=== PATIENT | female | born 1950 | race Caucasian/White ===

== ENCOUNTER 2018-06-22 21:46 | Emergency (ER) | payer MEDICARE ==
[~2018-06-22] VITALS: Ht 165.1 cm; Wt 57.0 kg
[2018-06-22] MEDS ORDERED: SODIUM CHLORIDE 0.9% 1,000 ML IV ONE (22:04)
[2018-06-22] MEDS ORDERED: KETOROLAC 30MG/ML VIAL IV STA (22:04)
[2018-06-22] MEDS ORDERED: ONDANSETRON HCL 4MG/2ML VIAL IV STA (22:04)
[2018-06-22] MEDS ORDERED: MORPHINE SULFATE 4 MG/ML CPJ (NOT FOR IM USE) IV STA (22:04)
[2018-06-22 22:59] LABS: BASOPHILS % 0.7 % (0.0-2.0); EOSINOPHILS % 1.1 % (0.0-5.0); HEMATOCRIT. 35.5 % (36.0-48.0); LYMPHOCYTES % 23.1 % (20.0-50.0); MEAN CORPUSCULAR HEMOGLOBIN 31.1 pg (28.0-32.0); MEAN CORPUSCULAR VOLUME 92.3 fL (81.0-99.0); MEAN PLATELET VOLUME 8.9 fl (7.4-10.4); MONOCYTES % 6.7 % (2.0-8.0); NEUTROPHILS % 68.4 % (40.0-76.0); PLATELET 311 x1000/uL (130-400); RED BLOOD CELL COUNT 3.84 mill/uL (4.2-5.4); RED CELL DISTRIBUTION WIDTH 15.2 % (11.6-14.6)
[2018-06-22] MEDS ORDERED: LORAZEPAM 2MG/ML CPJ IV ONE (23:00)
[2018-06-22 23:01] LABS: CHLORIDE 111 mEq/L (98-107)
[2018-06-22 23:03] LABS: PROTHROMBIN TIME 10.1 sec (9.4-11.6)
[2018-06-22 23:41] LABS: CLARITY URINE CLEAR (CLEAR); COLOR URINE YELLOW (YELLOW); KETONES URINE NEGATIVE (NEGATIVE); LEUKOCYTE ESTERASE URINE 1+ (NEGATIVE); NITRITE URINE NEGATIVE (NEGATIVE); OCCULT BLOOD URINE TRACE (NEGATIVE); PH URINE 5.5 (4.5-8.0); PROTEIN URINE NEGATIVE (NEGATIVE); SPECIFIC GRAVITY URINE 1.018 (1.005-1.030)
[2018-06-22] MEDS ORDERED: MORPHINE SULFATE 4 MG/ML CPJ (NOT FOR IM USE) IV ONE (23:45)
[2018-06-22] MEDS ORDERED: ONDANSETRON HCL 4MG/2ML VIAL IV ONE (23:45)
[2018-06-23 01:03] VITALS: BP 130/85
== END 2018-06-23 01:25 | disposition home or self-care (01) ==
LOC: ER 21:46
DX: S42.291A Other displaced fracture of upper end of right humerus, initial encounter for closed fracture (principal); S93.491A Sprain of other ligament of right ankle, initial encounter; D64.9 Anemia, unspecified; G25.81 Restless legs syndrome; Z98.890 Other specified postprocedural states; W10.8XXA Fall (on) (from) other stairs and steps, initial encounter; Y93.89 Activity, other specified; Y92.22 Religious institution as the place of occurrence of the external cause; Y99.8 Other external cause status
CPT/HCPCS: 36415; 71045; 73060; 73610; 80053; 81003; 83690; 84484; 85025; 85610; 96374; 96375; 96376; 99285; J1885; J2060; J2270; J2405; J7030; L3670